=== PATIENT | male | born 1985 | race African-American/Black ===

== ENCOUNTER 2021-11-19 07:49 | Outpatient (CLI) | payer MEDICAID, SELFPAY ==
--- NOTE | 2021-11-19 07:15 | MR_ITS ---
[address] [address] Phone:?[phone] Fax:?[phone] Referring Physician Information: Elizabeth Vaughn [address] [facility] [address] Phone:?[phone] Fax:?[phone] Patient:Nataly Calle D.O.B:?1985 Sex:?Male Phone:?[phone] [facility] MRN:?[id number] Exam Date:?11/19/2021 ? EXAM: MRI of the LEFT KNEE, without contrast CLINICAL HISTORY: Left knee pain without reported traumatic injury or previous surgery. Evaluate for lateral compartment pathology. COMPARISONS: None available. TECHNICAL: MR sequences of the left knee: sagittals: PD, PDFS coronals: PD, STIR axials: PD, T2 FS CONTRAST: None SEDATION: None FINDINGS: Bones: No fracture, bone marrow contusion, or other suspicious bone marrow signal abnormality. Patellofemoral joint: Cartilage: Single high-grade partial-thickness chondral fissure over the medial patellar facet best seen on axial series 14 image 12. Retinacula: The medial and lateral retinacula are intact. Fat pads: The infrapatellar, quadriceps, and prefemoral fat pads are unremarkable. Knee joint: Effusion: Trace left knee joint effusion. Popliteal cyst: None. Intra-articular bodies: None. Medial compartment: Medial meniscus: Approximately 2.5 cm in length longitudinal vertical tear of the peripheral one third of the posterior horn of the medial meniscus best seen on sagittal series 6 images 6 through 12. Cartilage: Intact. Lateral compartment: Lateral meniscus: Approximately 1.5 cm in length complex tear of the posterior horn through posterior horn/posterior root junction of the lateral meniscus best seen on sagittal series 6 images 23 through 16. Focal free edge tear of the mid body of the lateral meniscus best seen on coronal series 7 image 20. Cartilage: Approximately 5 x 5 mm focus of grade 3 chondral loss over the lateral femoral condyle at the sulcus terminalis best seen on coronal series 8 image 17 and sagittal series 6 image 22. Ligaments: Anterior cruciate ligament: Chronic complete tear. No associated bone marrow contusion is seen currently. There is approximately 1.3 cm of anterior translation of the tibia. Posterior cruciate ligament: Intact. Medial collateral ligament: No acute injury. Posterior oblique ligament: Intact. Fibular collateral ligament: Thickening of the fibular collateral ligament may reflect sequela of chronic sprain injury. No evidence of acute injury. Posterolateral corner: The distal biceps femoris tendon, iliotibial band, popliteus tendon, popliteus muscle, popliteofibular ligament, and arcuate ligament are intact. Posteromedial corner: The semimembranosus and pes anserine tendons are intact. Extensor mechanism: Patellar tendon: Intact. Quadriceps tendon: Intact, without tendinopathy. IMPRESSION: 1. 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 Approximately 1.3 cm of anterior translation of the tibia. 2. Approximately 2.5 cm in length longitudinal vertical tear of the peripheral one third of the posterior horn of the medial meniscus. 3. Approximately 1.5 cm in length complex tear of the posterior horn through posterior horn/posterior root junction of the lateral meniscus. In addition, focal free edge tear of the mid body of the lateral meniscus. 4. Thickening of the fibular collateral ligament may reflect sequela of chronic sprain injury. No evidence of acute injury. 5. Approximately 5 x 5 mm focus of grade 3 chondral loss over the lateral femoral condyle at the sulcus terminalis. Single high-grade partial-thickness chondral fissure over the medial patellar facet. 6. Trace left knee joint effusion. RCB Electronically signed on 11/19/2021 10:12:00 AM by Shahid Holley M.D.
== END 2021-11-19 07:50 | disposition home or self-care (01) ==
PROVIDERS: PCP Physician Assistant; Visit Provider Physician Assistant
DX: M25.562 Pain in left knee (principal); S83.512A Sprain of anterior cruciate ligament of left knee, initial encounter; M23.222 Derangement of posterior horn of medial meniscus due to old tear or injury, left knee; M23.252 Derangement of posterior horn of lateral meniscus due to old tear or injury, left knee; S83.8X2A Sprain of other specified parts of left knee, initial encounter; M25.462 Effusion, left knee
CPT/HCPCS: 73721

== ENCOUNTER 2022-03-04 06:42 | Day surgery (SDC) | payer MEDICAID, SELFPAY ==
[2022-03-04] VITALS (13 sets, daily range): BP systolic 99–141; BP diastolic 69–96; PULSE 61–93; RESP 12–16; TEMP 36–36.7; O2SAT 98–100; BMI 26.4
[2022-03-04] MEDS: LACTATED RINGERS 1000 ML 1,000 ML 100 ML IV ×2 (07:00→08:28)
[2022-03-04] MEDS: OXYCODONE (CR) 10 MG TAB.ER.12H PO (07:05)
[2022-03-04] MEDS: ACETAMINOPHEN 500 MG TABLET 1000 MG PO (07:05)
[2022-03-04] MEDS: CELECOXIB 200 MG CAPSULE PO (07:05)
[2022-03-04] MEDS: fentaNYL 100 MCG/2 ML inj IVP (07:32)
[2022-03-04] MEDS: MIDAZOLAM HCL 1 MG/ML inj IVP (07:32)
[2022-03-04] MEDS: CEFAZOLIN 2 GM INJ IVP (07:55)
--- NOTE | 2022-03-04 07:56 | SUR.PREOP ---
TIME?OUT:?0730 PT/RN/MDA?VERIFICATION?OF?SURGICAL?SITE,?PROCEDURE,?AND?CONSENT OBTAINED?PRIOR?TO?INVASIVE?PROCEDURE.
--- NOTE | 2022-03-04 09:25 | P.NB_ITS ---
Nerve Block Nerve Block Time Seen by Provider: 07:41 Date Seen: 03/04/22 Type of block requested by surgeon for post-operative analgesia: popliteal Side: left Time out performed: Yes Verification of patient name: Yes Verification of date of : Yes Site marking: site marked Name of person performing procedure: Cj Continuous monitoring Was continuous monitoring of O2 sat, B/P, cardiac nurse, recorded every 15 minutes?: Yes Procedure Checklist: sterile prep, needles and gloves Ultrasound guided. Images saved: Yes Medications given in 5ml increments after negative aspiration: Ropivicaine %: 0.5 mL: 20 Needle gauge: 22 Patient tolerated procedure well: Yes Additional comments: Needle noted adjacent to nerve Block Charges Block Charge (with Pro Fee): Sciatic Nerve Use of Ultrasound Machine for Block: Yes- US Guidance/pain block
--- NOTE | 2022-03-04 09:26 | P.NB_ITS ---
Nerve Block Nerve Block Time Seen by Provider: 07:41 Date Seen: 03/04/22 Type of block requested by surgeon for post-operative analgesia: femoral Side: left Time out performed: Yes Verification of patient name: Yes Verification of date of : Yes Site marking: site marked Name of person performing procedure: Cj Continuous monitoring Was continuous monitoring of O2 sat, B/P, disabilities services officer, recorded every 15 minutes?: Yes Procedure Checklist: sterile prep, needles and gloves Ultrasound guided. Images saved: Yes Medications given in 5ml increments after negative aspiration: Ropivicaine %: 0.5 mL: 20 Needle gauge: 20 Patient tolerated procedure well: Yes Additional comments: Needle noted adjacent to nerve Block Charges Block Charge (with Pro Fee): Femoral Nerve Use of Ultrasound Machine for Block: Yes- US Guidance/pain block
--- NOTE | 2022-03-04 10:18 | PM.ORPRC ---
Procedure Note Date of procedure: 03/04/22 Procedure: SURGEON: Shan Phan MD SAF[employer] DEPOSIT ATTENDANT: Aleena Laguerre PA-C, JAYCOB [place]ley PREOPERATIVE DIAGNOSIS: Left knee ACL tear, vertical longitudinal medial meniscus tear, lateral meniscus root tear POSTOPERATIVE DIAGNOSIS: Left knee ACL tear, vertical longitudinal medial meniscus tear, lateral meniscus root tear NAME OF OPERATION: Left knee endoscopic ACL reconstruction using patellar tendon autograft, medial meniscus repair, lateral meniscus root repair ANESTHESIA: Spinal, plus femoral nerve block ESTIMATED BLOOD LOSS: 50 mL COMPLICATIONS: None SPECIMENS: None DRAINS: None PREOPERATIVE ANTIBIOTICS: Ancef 2 grams INDICATIONS: The patient is a 36-year-old with a history of left knee injury consisting of the above diagnoses. Operative intervention was offered. The risks, benefits and expected outcomes were discussed in detail. These included but were not limited to: Infection, bleeding, injury to blood vessel or nerve, venous thromboembolism. All questions were answered to their satisfaction. Use of an assistant director of plant operations was necessary throughout the case for patient positioning and safety, soft tissue retraction and closure. PROCEDURE: A femoral nerve block was placed. Spinal anesthesia was administered. The patient was placed supine on the operating room table. The left lower extremity was prepped and draped in the usual sterile fashion. The limb was exsanguinated with the Wily bandage. The pneumatic tourniquet was inflated to 300 mmHg. A standard anterolateral portal was established. The arthroscope was introduced. The working portal was established anteromedially. Diagnostic arthroscopy was performed with findings as follows: The suprapatellar pouch is normal. Articular surface on the patella is normal. Articular surface on the trochlea is normal. The medial gutter is normal. The medial compartment shows normal articular cartilage on the medial femoral condyle and medial tibial plateau. The medial meniscus has a vertical, longitudinal tear at the meniscocapsular junction of the posterior horn. The notch shows the ACL to be completely torn. The lateral compartment shows normal articular cartilage on the lateral femoral condyle and lateral tibial plateau. The lateral meniscus is torn from its posterior tibial attachment. The lateral gutter is normal. Attention was then turned to the graft harvest. A longitudinal incision was made just medial to midline over the patellar tendon. Subcutaneous dissection was sharply taken through the peritenon which was carefully elevated medially and laterally. The assistant director of plant operations retracted the soft tissues to protect the patellar tendon. The central 10 mm of the patellar tendon with a 10 x 20 mm bone block from the patella and a 10 x 20 mm bone block from the tibia was harvested with the saw and osteotomes. It was taken to the back table for preparation by the assistant director of plant operations. The arthroscope was reintroduced into the knee. Attention was turned to the medial meniscus repair. The meniscal rasp was used in the vertical longitudinal tear of the medial meniscus. We then used the Arthrex fiber stitch to place 3 horizontal mattress sutures, 2 vertical mattress sutures repairing the medial meniscus. This provided a secure repair of the medial meniscus. Attention is then turned to the lateral meniscus root repair. The arthroscope was placed in the anteromedial portal. The knee scorpion was used to pass 2 FiberWire sutures in the posterior horn of the lateral meniscus. The ACL stump was debrided with the shaver. The notchplasty was performed with the bur. The [id number] position was identified. The knee was placed in hyperflexion by the assistant director of plant operations and the 6 mm [id number] guide was placed through the anteromedial portal. The Beath pin was drilled out the lateral thigh. The 10 mm low-profile Reamer was used to a depth of 25 mm. A loop of suture was left in the femoral tunnel. Bone debris was evacuated with the shaver. The gas pipe layer was used in the femoral tunnel. Attention then turned to the tibial tunnel. The tibial guide was placed in the center of the ACL tibial footprint. The guide pin was drilled the 10 mm coring Reamer was used. This autograft bone was used to back fill the patellar and tibial donor sites. Attention was then turned to the lateral meniscus root repair tunnel. The guide was placed in the center of lateral meniscus posterior root. The 6 mm FlipCutter was drilled into this spot, starting just distal to the tibial tunnel aperture. The tunnel was back cut for 10 mm. We then placed the fiber stick and used it to shuttle the sutures on the posterior horn of the lateral meniscus out the anteromedial tibia. The ACL graft was pulled into the knee by the assistant director of plant operations, using our previously placed suture and was placed in the femoral socket. The tap was used and a 7 x 20 mm BioComposite interference screw was used on the femoral side. This provided excellent fixation. We then tensioned the graft and cycled the knee. The tap was used on the tibial side and a 7 x 20 mm BioComposite interference screw was placed on the tibial side. This has excellent purchase as well. The lateral meniscus root repair sutures were then tensioned and secured to the anteromedial face of the tibia with a peak SwiveLock anchor. The graft was then inspected. It was found to be under physiologic tension. There is no roof impingement. Arthroscopic Debbie's is a solid grade 1 with a firm endpoint. The lateral meniscus root repair appears solid. The patellar tendon was closed with a running 0 Vicryl suture. The assistant director of plant operations closed the subcutaneous tissues with a 2-0 Vicryl and a running 3-0 Monocryl. Glue was used to seal the skin. A dry dressing Ramos stocking and T scope brace were applied by the assistant director of plant operations. The tourniquet was released. Sponge and needle counts were correct x 2. The patient tolerated the procedure well. There were no apparent complications. They were carefully transferred to the hospital bed and taken to the postanesthesia care unit in satisfactory condition. PLAN: The patient will be discharged to home. They will be nonweightbearing for the next 6 weeks. Range of motion will be 0-90 x 2 weeks then unrestricted. No squatting for 4 months. They will follow up in physical therapy in 48-72 hours for wound check and dressing change. They will follow up in the office in 2 weeks with a supine AP and lateral view of the knee prior to being seen.
--- NOTE | 2022-03-04 10:40 | W.ANESCHARGE ---
Anesthesia Charges Start Date/Time Anesthesia Start Date: 03/04/22 Anesthesia Start Time: 07:47 Stop Date/Time Anesthesia Stop Date: 03/04/22 Anesthesia Stop Time: 10:39 Summary Emergency: No
--- NOTE | 2022-03-04 11:30 | W.ANESCHARGE ---
Anesthesia Charges Start Date/Time Anesthesia Start Date: 03/04/22 Anesthesia Start Time: 07:47 Stop Date/Time Anesthesia Stop Date: 03/04/22 Anesthesia Stop Time: 10:39 Summary Emergency: No
--- NOTE | 2022-03-04 12:31 | SUR.PHASEII ---
DARY INSTRUCTION COMPLETED BY BERTRAM MILES FROM PHYSICAL THERAPY
== END 2022-03-04 13:02 | disposition home or self-care (01) ==
PROVIDERS: PCP Physician Assistant; Visit Provider Orthopaedic Surgery
PROC: (CPT 29888; principal; 2022-03-04 08:15)
DX: S83.512A Sprain of anterior cruciate ligament of left knee, initial encounter (principal); S83.282A Other tear of lateral meniscus, current injury, left knee, initial encounter; S83.242A Other tear of medial meniscus, current injury, left knee, initial encounter
CPT/HCPCS: 29888; 29880; 1400; 64445; 64447; 76942; 97116; 97161; A9270; C1713; J0690; J1100; J2250; J2370; J2405; J2704; J2795; J3010; J7120; L1833